=== PATIENT | male | born 1995 | race African-American/Black ===

== ENCOUNTER 2017-02-14 12:58 | Inpatient (IN) ==
[~2017-02-14 12:58] MED LIST: *HR* EPINEPHrine 1 MG/10 ML SYRINGE IVP ONE; Sodium Bicarbonate 50 MEQ/50 ML VIAL IVC ONE
[2017-02-14] MEDS ORDERED: 0.9 % Sodium Chloride 1,000 ML IVC ONE ×2 (13:03→13:25)
[2017-02-14] MEDS ORDERED: 0.9 % Sodium Chloride 1,000 ML ONE (13:04)
[2017-02-14 13:09] LABS: Hematocrit 46.2 % (37.5-50.1); Hemoglobin 15.3 g/dL (12.9-16.9); Mean Corpuscular HGB Conc 33.1 g/dL (31.6-35.5); Mean Corpuscular Hemoglobin 29.7 pg (28.0-33.3); Mean Corpuscular Volume 89.5 fL (83.0-100.0); Mean Platelet Volume 10.3 fL (9.4-12.4); Platelet Count 366 K/mcL (140-400); Red Blood Count 5.16 M/mcL (4.19-5.50); Red Cell Distribution Width 12.2 % (11.5-14.5)
[2017-02-14 13:22] LABS: Calcium 9.1 mg/dL (8.6-10.8); Potassium 4.8 mEq/L (3.5-4.5)
[2017-02-14 13:27] LABS: Bilirubin,Urine Negative (Negative); Blood,Urine Trace (Negative); Clarity,Urine Cloudy (Clear); Color,Urine Yellow (Yellow); Glucose,Urine (UA) Normal (Normal); Ketones,Urine Negative (Negative); Leukocyte Esterase,Urine Negative (Negative); Nitrite,Urine Negative (Negative); Protein,Urine 30 mg/dL (Neg-Trace); Specific Gravity,Urine 1.018 (1.010-1.025); Urobilinogen,Urine Normal (Normal)
[2017-02-14 13:28] LABS: Bacteria,Urine None Seen per hpf (None-Few); Hyaline Casts,Urine Few per lpf (None-Few); Squamous Epithelial Cell,Urine Many per lpf (None-Few); WBC,Urine 50-100 per hpf (0-3)
[2017-02-14 13:37] LABS: Sperm,Urine Present
[2017-02-14 13:44] LABS: Amphetamine Screen,Urine Negative ng/mL (Cutoff=1000); Barbiturate Screen,Urine Negative ng/mL (Cutoff=200); Benzodiazepines Screen,Urine Positive ng/mL (Cutoff=200); Cannabinoid Screen,Urine Negative ng/mL (Cutoff = 50); Cocaine Screen,Urine Positive ng/mL (Cutoff= 300); Opiate Screen,Urine Positive ng/mL (Cutoff=300); Phencyclidine Screen,Urine Negative ng/mL (Cutoff=25)
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
[2017-02-14] MEDS ORDERED: Piperacillin/Tazobactam 4.5 GM in D5% in Water (Mini-Bag+) 100 ML IVPB ONE (14:04)
[2017-02-14] MEDS ORDERED: *HR* Propofol 500 MG/50 ML BOTTLE IVP ONE (14:05)
[2017-02-14] MEDS ORDERED: *HR* HYDROmorphone (PF) 1 MG/ML SYRINGE IVP ONE (14:07)
[2017-02-14] MEDS ORDERED: Ondansetron 4 MG/2 ML VIAL IVP ONE (14:07)
[2017-02-14] MEDS: Propofol 500 MG/50 ML INFUS..BTL IVC SCH ×2 (14:39→19:41)
[2017-02-14 14:50] LABS: ABG Base Excess -7 mEq/L (-2 to 3); ABG HCO3 21 mEq/L (21-27); ABG Oxygen Saturation 94 % (95-98); ABG PCO2 52 mmHg (35-45); ABG PH 7.22 pH Units (7.32-7.45); ABG PO2 87 mmHg (85-104); ABG TCO2 23 mEq/L (20-26); Blood Gas Modality ASSIST CONTROL; Blood Gas PEEP 5 cm H2O; Blood Gas Respiration Rate 18; Blood Gas VT 500 cc
[2017-02-14] MEDS ORDERED: Furosemide 40 MG/4 ML VIAL ONE (15:30)
[2017-02-14] MEDS: Furosemide 40 MG/4 ML VIAL IVP ONE ×2 (15:37→17:37)
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
[2017-02-14] MEDS ORDERED: Naloxone 0.4 MG/ML INJ IVP PRN (16:29)
[2017-02-14] MEDS ORDERED: Sodium Phosphate 30 MMOL in D5% in Water 100 ML IVPB PRN (16:46)
[2017-02-14] MEDS ORDERED: Lacri-Lube 3.5 GM TUBE BOTH EYES PRN (16:47)
[2017-02-14] MEDS: FentaNYL (PF) 1,000 MCG in 0.9 % Sodium Chloride 80 ML IVC SCH (17:25)
[2017-02-14] MEDS: *HR* Heparin 5,000 UNIT/ML VIAL SQ SCH (17:36)
[2017-02-14] MEDS: Ringers Solution, Lactated 1,000 ML IVC SCH (17:37)
[2017-02-14 17:45] LABS: Acetaminophen < 1.0 mcg/mL (10-30); Salicylate < 5.0 mg/dL (15-30)
[2017-02-14 17:46] LABS: Albumin 3.8 g/dL (3.5-5.0); Bilirubin,Direct 0.4 mg/dL (0.0-0.5); Bilirubin,Indirect 0.2 mg/dL (0.0-1.2); Bilirubin,Total 0.6 mg/dL (0.2-1.2); Globulin 3.8 g/dL (2.4-3.5); Total Protein 7.6 g/dL (6.0-8.3)
[2017-02-14 18:10] LABS: ABG Base Excess -7 mEq/L (-2 to 3); ABG HCO3 22 mEq/L (21-27); ABG Oxygen Saturation 95 % (95-98); ABG PCO2 55 mmHg (35-45); ABG PH 7.22 pH Units (7.32-7.45); ABG PO2 95 mmHg (85-104); ABG TCO2 24 mEq/L (20-26)
[2017-02-14] MEDS: Lacri-Lube 3.5 GM TUBE BOTH EYES SCH (19:43)
[2017-02-14] MEDS: Chlorhexidine Rinse 15 ML MOUTHWASH MM SCH (20:13)
[2017-02-15] MEDS: Lacri-Lube 3.5 GM TUBE BOTH EYES SCH ×6 (00:49→19:46)
[2017-02-15] MEDS: Ringers Solution, Lactated 1,000 ML IVC SCH (04:01)
[2017-02-15 04:30] LABS: ABG Base Excess -5 mEq/L (-2 to 3); ABG HCO3 22 mEq/L (21-27); ABG Oxygen Saturation 89 % (95-98); ABG PCO2 44 mmHg (35-45); ABG PH 7.31 pH Units (7.32-7.45); ABG PO2 63 mmHg (85-104); ABG TCO2 23 mEq/L (20-26); Blood Gas Modality ASSIST CONTROL; Blood Gas PEEP 10 cm H2O; Blood Gas Respiration Rate 20; Blood Gas VT 550 cc
[2017-02-15] MEDS: *HR* Heparin 5,000 UNIT/ML VIAL SQ SCH ×2 (05:07→17:30)
[2017-02-15 05:35] LABS: Basophils % 0.2 %; Hematocrit 46.8 % (37.5-50.1); Immature Granulocytes % 0.9 % (0-4); Lymphocytes # 0.7 K/mcL (0.6-4.6); Lymphocytes % 2.8 %; Mean Corpuscular HGB Conc 35.5 g/dL (31.6-35.5); Mean Corpuscular Hemoglobin 29.6 pg (28.0-33.3); Mean Corpuscular Volume 83.6 fL (83.0-100.0); Mean Platelet Volume 9.8 fL (9.4-12.4); Monocytes # 0.7 K/mcL (0.0-1.3); Monocytes % 3.1 %; Neutrophils # 21.7 K/mcL (1.6-8.9); Platelet Count 267 K/mcL (140-400); Red Cell Distribution Width 12.3 % (11.5-14.5)
[2017-02-15 05:39] LABS: INR 1.2; Prothrombin Time 12.8 Seconds (9.4-12.1)
[2017-02-15] MEDS: Propofol 500 MG/50 ML INFUS..BTL IVC SCH ×3 (05:39→08:17)
[2017-02-15 05:46] LABS: Alanine Aminotransferase 829 Units/L (0-55); Albumin 3.6 g/dL (3.5-5.0); Alkaline Phosphatase 66 Units/L (38-126); Aspartate Amino Transferase 703 Units/L (5-34); BUN/Creatinine Ratio 9 (6-26); Bilirubin,Direct 0.5 mg/dL (0.0-0.5); Bilirubin,Indirect 0.3 mg/dL (0.0-1.2); Bilirubin,Total 0.8 mg/dL (0.2-1.2); Blood Urea Nitrogen 14 mg/dL (8-26); Carbon Dioxide 22 mEq/L (19-29); Chloride 101 mEq/L (98-109); Globulin 3.6 g/dL (2.4-3.5); Glucose 141 mg/dL (70-99); Magnesium 1.6 mg/dL (1.6-2.6); Osmolality,Calculated 289 (280-300); Phosphorous 3.9 mg/dL (2.3-4.7); Sodium 138 mEq/L (136-145); Total Protein 7.2 g/dL (6.0-8.3); eGFR For African Americans > 60 (> 60); eGFR For Non-African Americans 59 (> 60)
[2017-02-15 05:49] LABS: Ionized Calcium 1.06 mmol/L (1.15-1.35)
[2017-02-15 05:50] LABS: Potassium 6.1 mEq/L (3.5-4.5)
[2017-02-15] MEDS ORDERED: Furosemide 40 MG/4 ML VIAL IVP ONE (06:02)
[2017-02-15 06:05] LABS: Basophils # 0.1 K/mcL (0.0-0.2); Hemoglobin 16.6 g/dL (12.9-16.9)
[2017-02-15] MEDS: Calcium Gluconate 1,000 MG in D5% in Water 100 ML IVPB PRN (06:20)
[2017-02-15] MEDS: Magnesium Sulfate 2 GM in D5% in Water 100 ML IVPB PRN ×2 (06:27→14:30)
[2017-02-15] MEDS: Piperacillin/Tazobactam 3.375 GM in D5% in Water (Mini-Bag+) 100 ML IVPB SCH ×3 (06:48→21:50)
[2017-02-15 07:09] LABS: Platelet Estimate Normal (Normal)
[2017-02-15] MEDS: Pantoprazole 40 MG VIAL IVP SCH (08:16)
[2017-02-15] MEDS: Chlorhexidine Rinse 15 ML MOUTHWASH MM SCH ×2 (08:16→19:49)
--- NOTE | 2017-02-15 09:21 | Procedure Note ---
<VanceErnesto lind M - Last Filed: 02/15/17 10:19> Procedure: I examined this patient and my medical decision-making was reviewed with the Resident Physician. I agree with the documented findings, disposition and treatment plan as described except to the extent set forth below. Personally supervised residents placing a right femoral central line Disposition: ICU <Dinora Lui - Last Filed: 02/15/17 11:43> Date of procedure: 02/15/17 Pre-op diagnosis: cardiac arrest Post-op diagnosis: same Procedure: Central Venous Catheter Placement: Written consent obtained from patient's mother. The right femoral vein was visualized with ultrasound and the right femoral vein was deemed a reasonable target for catheter placement. The area was cleaned and draped in the usual, sterile fashion. With ultrasound guidance the introducer needle was advanced into the right femoral vein and dark, non-pulsatile bloodflow was returned. The guidewire was then advanced through the needle into the right femoral vein without resistance. The introducer needle was removed intact and the guidewire was visualized in the right femoral vein with ultrasound. A small incision was made with a scalpel at the skin surface and a dilator was threaded over the guidewire. Appropriate dilation of soft tissues obtained and the dilator was exchanged over the guidewire for a triple-lumen catheter. The guidewire was then removed intact and ability of all three lumens to appropriately aspirate and flush was verified. The catheter was secured in place with sutures and a biopatch was placed over the catheter at the insertion site. A sterile Tegaderm was placed over the insertion site. Patient tolerated the procedure well. I was supervised throughout this procedure by Walter Hernandez, DO PGY-2. Anesthesia: GETA Surgeon: Dinora Lui Bike Designer: Walter Hernandez Estimated blood loss (cc): 5 IV fluids (cc): 20 Pathology: none sent Condition: critical Disposition: ICU
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
[2017-02-15] MEDS ORDERED: 0.9 % Sodium Chloride 1,000 ML ONE ×2 (11:47→21:46)
[2017-02-15] MEDS: 0.9 % Sodium Chloride 1,000 ML IV SCH ×3 (11:49→21:49)
[2017-02-15] MEDS ORDERED: *HR* LORazepam 2 MG/ML VIAL IVP PRN (11:56)
[2017-02-15 13:31] LABS: Magnesium 1.6 mg/dL (1.6-2.6); Potassium 4.1 mEq/L (3.5-4.5)
--- NOTE | 2017-02-15 13:33 | Pulmonology Progress Note ---
<Walter Hernandez - Last Filed: 02/15/17 13:30> Date of Encounter: 02/15/17 Time of Encounter: 13:30 Assessment and Plan (1) Cardiopulmonary arrest with successful resuscitation Current Visit: Yes Status: Acute The patient was brought in by family and apparently had not been breathing for 10 minutes prior to arrival. Upon arrival patient was found to be without a pulse. Patient was successfully resuscitated in the emergency department. Hypothermic protocol was initiated however overdose is an exclusion criteria. (2) Anoxic encephalopathy syndrome Current Visit: Yes Status: Acute Patient's neurologic exam has varied over the past 24 hours since admission. At this point he appears to have pupillary and corneal reflexes. He is having some seizure activity which is likely related to his anoxic brain injury. Nuclear medicine brain perfusion scan showed cerebral blood flow which is not consistent with brain . EEG pending. Patient has been started on Keppra. Neurology has been consulted. (3) Polysubstance abuse Current Visit: Yes Status: Acute Likely resulting overdose leading to cardiac arrest. Urine tox screen was positive for opiates, benzodiazepines, and cocaine. (4) Renal failure, acute Current Visit: Yes Status: Acute Likely related to hypoperfusion setting of cardiac arrest. Creatinine improved today. Good urine output. Calero placed for accurate I's and O's. Continue fluid hydration. Continue monitor renal function. Qualifiers: Acute renal failure type: unspecified Qualified Code(s): N17.9 - Acute kidney failure, unspecified Subjective Principal diagnosis: Cardiac arrest Interval history: Patient seen and examined at bedside. Patient remains intubated. He has been off all sedation since last night and remains unresponsive. He does have spontaneous eye opening and a poor gaze but this is not in relation to any verbal commands. He has also had some involuntary right-sided twitching. He is unresponsive to verbal or painful stimuli Objective PUL Vital signs: Last Vital Signs Temp 99.5 F 02/15/17 11:39 Pulse 108 02/15/17 13:11 Resp 20 02/15/17 13:11 BP 134/86 02/15/17 13:11 Pulse Ox 100 02/15/17 13:11 General appearance: comatose ENT: oropharynx moist Effort: normal Auscultation: bilateral: clear Cardiovascular: regular rate and rhythm Gastrointestinal: hypoactive bowel sounds, soft, non-tender, non-distended Extremities: no cyanosis, no edema, no clubbing Ventilator Settings Ventilator Settings: Ventilator Settings, Last 8 Hours Ventilator Mode VC+ Ventilator Mode VC+ Ventilator Mode VC+ Ventilator Mode VC+ Ventilator Mode VC+ Ventilator Mode VC+ Ventilator Tidal Volume 550 Setting Ventilator Tidal Volume 550 Setting Ventilator Tidal Volume 550 Setting Ventilator Tidal Volume 550 Setting Ventilator Tidal Volume 550 Setting Ventilator Tidal Volume 550 Setting Ventilator Respiratory Rate 20 Setting Ventilator Respiratory Rate 20 Setting Ventilator Respiratory Rate 20 Setting Ventilator Respiratory Rate 20 Setting Ventilator Respiratory Rate 20 Setting Ventilator Respiratory Rate 20 Setting Actual Respiratory Rate 20 Actual Respiratory Rate 20 Actual Respiratory Rate 20 Actual Respiratory Rate 20 Positive End Expiratory 5 Pressure Positive End Expiratory 5 Pressure Positive End Expiratory 10 Pressure Positive End Expiratory 10 Pressure Peak Inspiratory Airway 25 Pressure Peak Inspiratory Airway 25 Pressure Peak Inspiratory Airway 24 Pressure Peak Inspiratory Airway 24 Pressure Results - Laboratory Findings CBC and BMP: 02/15/17 05:17 02/15/17 05:17 ABG ABG pH 7.31 pH Units (7.32-7.45) L 02/15/17 04:25 ABG pCO2 44 mmHg (35-45) 02/15/17 04:25 ABG pO2 63 mmHg (85-104) L 02/15/17 04:25 ABG O2 Saturation 89 % (95-98) L 02/15/17 04:25 PT/INR, D-dimer PT 12.8 Seconds (9.4-12.1) H 02/15/17 05:17 Abnormal lab findings: Abnormal lab results WBC 23.3 K/mcL (4.3-11.1) H 02/15/17 05:17 RBC 5.60 M/mcL (4.19-5.50) H 02/15/17 05:17 Neutrophils # 21.7 K/mcL (1.6-8.9) H 02/15/17 05:17 PT 12.8 Seconds (9.4-12.1) H 02/15/17 05:17 ABG pH 7.31 pH Units (7.32-7.45) L 02/15/17 04:25 ABG pO2 63 mmHg (85-104) L 02/15/17 04:25 ABG O2 Saturation 89 % (95-98) L 02/15/17 04:25 ABG Base Excess -5 mEq/L (-2 to 3) L 02/15/17 04:25 Potassium 6.1 mEq/L (3.5-4.5) H D 02/15/17 05:17 Creatinine 1.48 mg/dL (0.72-1.25) H 02/15/17 05:17 Est GFR (Non-Af Amer) 59 (> 60) L 02/15/17 05:17 Glucose 141 mg/dL (70-99) H 02/15/17 05:17 POC Glucose 145 (58-89) H 02/15/17 03:28 AST 703 Units/L (5-34) H 02/15/17 05:17 ALT 829 Units/L (0-55) H 02/15/17 05:17 Creatine Kinase 228 Units/L (30-200) H 02/14/17 17:17 Troponin I 0.21 ng/mL (0-0.03) H* 02/15/17 05:17 Globulin 3.6 g/dL (2.4-3.5) H 02/15/17 05:17 Albumin/Globulin Ratio 1.0 (1.1-2.2) L 02/15/17 05:17 Ur Specimen Adequacy See below A 02/14/17 13:22 Urine Clarity Cloudy (Clear) A 02/14/17 13:22 Urine Protein 30 mg/dL (Neg-Trace) H 02/14/17 13:22 Urine Blood Trace (Negative) H 02/14/17 13:22 Urine Microscopic RBC 5-15 per hpf (0-3) H 02/14/17 13:22 Urine Microscopic WBC 50-100 per hpf (0-3) H 02/14/17 13:22 Ur Squamous Epith Cells Many per lpf (None-Few) H 02/14/17 13:22 Salicylates < 5.0 mg/dL (15-30) L 02/14/17 17:17 Urine Opiates Screen Positive ng/mL (Bntyos=873) H 02/14/17 13:22 Acetaminophen < 1.0 mcg/mL (10-30) L 02/14/17 17:17 U Benzodiazepines Scrn Positive ng/mL (Fifrwn=713) H 02/14/17 13:22 Urine Cocaine Screen Positive ng/mL (Cutoff= 300) H 02/14/17 13:22 - Clinical Findings Intake & Output: Intake & Output 02/14/17 02/15/17 02/15/17 23:59 07:59 15:59 Intake Total 50 / 50 1048.6 / 1048.6 1000 / 1000 Output Total 1400 / 1400 850 / 850 650 / 650 Balance -1350 / -1350 198.6 / 198.6 350 / 350 Consult Discharge Plan - Plan Referrals: NONE,PCP [Primary Care Provider] - <Ernesto Pickard M - Last Filed: 02/15/17 15:58> Date of Encounter: 02/15/17 Objective PUL Vital signs: Last Vital Signs Temp 101.3 F H 02/15/17 14:00 Pulse 112 02/15/17 15:07 Resp 20 02/15/17 15:24 BP 136/87 02/15/17 15:24 Pulse Ox 99 02/15/17 15:24 Ventilator Settings Ventilator Settings: Ventilator Settings, Last 8 Hours Ventilator Mode VC+ Ventilator Mode VC+ Ventilator Mode VC+ Ventilator Mode VC+ Ventilator Mode VC+ Ventilator Mode VC+ Ventilator Tidal Volume 550 Setting Ventilator Tidal Volume 550 Setting Ventilator Tidal Volume 550 Setting Ventilator Tidal Volume 550 Setting Ventilator Tidal Volume 550 Setting Ventilator Tidal Volume 550 Setting Ventilator Respiratory Rate 20 Setting Ventilator Respiratory Rate 20 Setting Ventilator Respiratory Rate 20 Setting Ventilator Respiratory Rate 20 Setting Ventilator Respiratory Rate 20 Setting Ventilator Respiratory Rate 20 Setting Actual Respiratory Rate 20 Actual Respiratory Rate 20 Actual Respiratory Rate 20 Actual Respiratory Rate 20 Actual Respiratory Rate 20 Positive End Expiratory 5 Pressure Positive End Expiratory 5 Pressure Positive End Expiratory 5 Pressure Positive End Expiratory 5 Pressure Positive End Expiratory 10 Pressure Peak Inspiratory Airway 24 Pressure Peak Inspiratory Airway 22 Pressure Peak Inspiratory Airway 25 Pressure Peak Inspiratory Airway 25 Pressure Peak Inspiratory Airway 24 Pressure Results - Laboratory Findings CBC and BMP: 02/15/17 05:17 02/15/17 12:30 ABG ABG pH 7.31 pH Units (7.32-7.45) L 02/15/17 04:25 ABG pCO2 44 mmHg (35-45) 02/15/17 04:25 ABG pO2 63 mmHg (85-104) L 02/15/17 04:25 ABG O2 Saturation 89 % (95-98) L 02/15/17 04:25 PT/INR, D-dimer PT 12.8 Seconds (9.4-12.1) H 02/15/17 05:17 Abnormal lab findings: Abnormal lab results WBC 23.3 K/mcL (4.3-11.1) H 02/15/17 05:17 RBC 5.60 M/mcL (4.19-5.50) H 02/15/17 05:17 Neutrophils # 21.7 K/mcL (1.6-8.9) H 02/15/17 05:17 PT 12.8 Seconds (9.4-12.1) H 02/15/17 05:17 ABG pH 7.31 pH Units (7.32-7.45) L 02/15/17 04:25 ABG pO2 63 mmHg (85-104) L 02/15/17 04:25 ABG O2 Saturation 89 % (95-98) L 02/15/17 04:25 ABG Base Excess -5 mEq/L (-2 to 3) L 02/15/17 04:25 Creatinine 1.48 mg/dL (0.72-1.25) H 02/15/17 05:17 Est GFR (Non-Af Amer) 59 (> 60) L 02/15/17 05:17 Glucose 141 mg/dL (70-99) H 02/15/17 05:17 POC Glucose 145 (58-89) H 02/15/17 03:28 AST 703 Units/L (5-34) H 02/15/17 05:17 ALT 829 Units/L (0-55) H 02/15/17 05:17 Creatine Kinase 228 Units/L (30-200) H 02/14/17 17:17 Troponin I 0.21 ng/mL (0-0.03) H* 02/15/17 05:17 Globulin 3.6 g/dL (2.4-3.5) H 02/15/17 05:17 Albumin/Globulin Ratio 1.0 (1.1-2.2) L 02/15/17 05:17 Ur Specimen Adequacy See below A 02/14/17 13:22 Urine Clarity Cloudy (Clear) A 02/14/17 13:22 Urine Protein 30 mg/dL (Neg-Trace) H 02/14/17 13:22 Urine Blood Trace (Negative) H 02/14/17 13:22 Urine Microscopic RBC 5-15 per hpf (0-3) H 02/14/17 13:22 Urine Microscopic WBC 50-100 per hpf (0-3) H 02/14/17 13:22 Ur Squamous Epith Cells Many per lpf (None-Few) H 02/14/17 13:22 Salicylates < 5.0 mg/dL (15-30) L 02/14/17 17:17 Urine Opiates Screen Positive ng/mL (Zuawqs=752) H 02/14/17 13:22 Acetaminophen < 1.0 mcg/mL (10-30) L 02/14/17 17:17 U Benzodiazepines Scrn Positive ng/mL (Hjardt=151) H 02/14/17 13:22 Urine Cocaine Screen Positive ng/mL (Cutoff= 300) H 02/14/17 13:22 - Clinical Findings Intake & Output: Intake & Output 02/14/17 02/15/17 02/15/17 23:59 07:59 15:59 Intake Total 50 / 50 1048.6 / 1048.6 1204 / 1204 Output Total 1400 / 1400 850 / 850 650 / 650 Balance -1350 / -1350 198.6 / 198.6 554 / 554 - Attending Attestation I examined this patient and my medical decision-making was reviewed with the Resident Physician. I agree with the documented findings, disposition and treatment plan as described except to the extent set forth below. Patient seen and examined. Labs, radiology, chart personally reviewed. Agree with resident's history and physical, assessment, plan with following comments: [employer]: Patient does not follows commands, discussed with the neurologist and patient have brainstem function with reactive pupil and his examination fluctuate. However when I tried spontaneous breathing trial there is no evidence of any active breathing with apnea. I still feel poor prognosis in this situation and anoxic/hypoxic. There is question about seizure as well and neurologist to address that. Perfusion scan for brain activity. Discussed with the mother at the bedside. Pulmonary: Acceptable oxygenation and ventilation. There is no plan for extubation at this point and lowered his FiO2 as well as his PEEP with maintaining oxygenation recently. Cardiovascular: stable GI: Nutrition per dietary and GI prophylaxis per routine Heme: DVT prophylaxis per routine ID: Continue antibiotics and plan to de-escalation Renal; urine out put and renal funtion reviewed Endorcine: blood glucose is monitored Lines: all lines checked and no evidence of infections Skin: skin care to prevent pressure ulcers per nursing routine care I spent 35 min of Critical Care time with this patient. It involved decision making of high complexity to assess, manipulate, and support vital organ system failure and/or to prevent further life threatening deterioration of the patient' s condition. The time involved in the performance of separately reportable procedures was not counted toward critical care time.
[2017-02-15] MEDS ORDERED: Acetaminophen 650 MG RECTAL SUPP RC PRN (14:05)
[2017-02-15] MEDS: FentaNYL (PF) 1,000 MCG in 0.9 % Sodium Chloride 80 ML IVC SCH (15:09)
--- NOTE | 2017-02-15 16:32 | EEG/EMG/Oth Biometrics Report ---
EEG Procedure Report Date of procedure: 02/15/17 EEG Procedure: Routine EEG Procedure Note: Pt unresponsive, on Vent, admitted with hypoxic brain injury technical Description: this is a Routine 21-channel digital EEG was obtained to rule out any seizure activity or focal abnormalities. FINDINGS: this EEG showed significant Background slowing along with periodic generalized predominantly frontal central polyspike activity at 0.5 - 1 Hz. noted to be complex and multiphasic and are epileptiform in morphology instead of being lateralized, they are generalized. lasting only one or some times more than 3 seconds, off and on during the study, this Periodic patterns, including burst-suppression patterns, which is more common in anoxic injuries than in other systemic disturbances. there are continous Burst-suppression pattern noted in between those discharges, periodically interrupted by episodes of suppression (activity < 10 V). s) than the bursts of activity IMPRESSION: This is significantly Abnormal EEG, significant paroxysmal activities or epileptiform discharges were seen thorough the study along with Burst suppression pattern which is commonly associated with Hypoxic Anoxic injury and associated with poor prognosis clinical correlation is suggested.
--- NOTE | 2017-02-15 16:32 | Electrocardiograph Report ---
[address] [address] Test Date: 2017-02-14 Pat Name: Geoffrey Orantes Department: [id number] Room: [facility] Gender: M Bankruptcy Judge: : [id number] Requested By: Walter Alonso Order Number: [id number] Reading MD: Brittani Maxwell Measurements Intervals [place] Rate: 144 P: MT: 0 QRS: 83 QRSD: 134 T: 4 QT: 323 QTc: 406 Interpretive Statements ATRIAL FIBRILLATION WITH RAPID VENTRICULAR RESPONSE INTRAVENTRICULAR CONDUCTION DELAY Electronically Signed On 02-15-2017 16:30:53 EDT by Brittani Maxwell
[2017-02-15] MEDS ORDERED: Piperacillin/Tazobactam 3.375 GM in D5% in Water (Mini-Bag+) 100 ML IVPB SCH (22:00)
[2017-02-16] MEDS: Lacri-Lube 3.5 GM TUBE BOTH EYES SCH ×5 (02:09→16:56)
[2017-02-16 04:44] LABS: Basophils % 0.1 %; Eosinophils % 0.1 %; Hematocrit 38.6 % (37.5-50.1); Hemoglobin 14.1 g/dL (12.9-16.9); Immature Granulocytes % 1.5 % (0-4); Lymphocytes % 5.6 %; Mean Corpuscular HGB Conc 36.5 g/dL (31.6-35.5); Mean Corpuscular Hemoglobin 29.6 pg (28.0-33.3); Mean Corpuscular Volume 80.9 fL (83.0-100.0); Mean Platelet Volume 9.7 fL (9.4-12.4); Monocytes # 0.5 K/mcL (0.0-1.3); Monocytes % 2.5 %; Neutrophils # 16.7 K/mcL (1.6-8.9); Platelet Count 194 K/mcL (140-400); Red Blood Count 4.77 M/mcL (4.19-5.50); Red Cell Distribution Width 12.2 % (11.5-14.5); Segmented Neutrophils % 90.2 %
[2017-02-16 04:50] LABS: INR 1.3; Prothrombin Time 14.4 Seconds (9.4-12.1)
[2017-02-16 04:52] LABS: Ionized Calcium 1.06 mmol/L (1.15-1.35)
[2017-02-16 04:58] LABS: Alanine Aminotransferase 425 Units/L (0-55); Albumin 2.9 g/dL (3.5-5.0); Alkaline Phosphatase 60 Units/L (38-126); Aspartate Amino Transferase 138 Units/L (5-34); BUN/Creatinine Ratio 16 (6-26); Bilirubin,Direct 0.6 mg/dL (0.0-0.5); Bilirubin,Indirect 0.6 mg/dL (0.0-1.2); Bilirubin,Total 1.2 mg/dL (0.2-1.2); Blood Urea Nitrogen 14 mg/dL (8-26); Calcium 8.8 mg/dL (8.6-10.8); Carbon Dioxide 26 mEq/L (19-29); Chloride 100 mEq/L (98-109); Glucose 128 mg/dL (70-99); Magnesium 1.9 mg/dL (1.6-2.6); Osmolality,Calculated 282 (280-300); Phosphorous 1.9 mg/dL (2.3-4.7); Sodium 135 mEq/L (136-145); Total Protein 6.2 g/dL (6.0-8.3); eGFR For African Americans > 60 (> 60); eGFR For Non-African Americans > 60 (> 60)
[2017-02-16 04:59] LABS: Albumin/Globulin Ratio 0.9 (1.1-2.2); Globulin 3.3 g/dL (2.4-3.5)
[2017-02-16] MEDS: *HR* Heparin 5,000 UNIT/ML VIAL SQ SCH ×2 (06:16→18:25)
[2017-02-16] MEDS: Magnesium Sulfate 2 GM in D5% in Water 100 ML IVPB PRN (06:17)
[2017-02-16] MEDS: Piperacillin/Tazobactam 3.375 GM in D5% in Water (Mini-Bag+) 100 ML IVPB SCH ×3 (06:22→21:50)
[2017-02-16] MEDS: Calcium Gluconate 1,000 MG in D5% in Water 100 ML IVPB PRN (06:23)
[2017-02-16] MEDS: Potassium Chloride 40 MEQ/200 ML BAG IVPB PRN ×2 (06:24→17:39)
[2017-02-16] MEDS ORDERED: Norepinephrine 4 MG in D5% in Water 250 ML IVC SCH (06:30)
[2017-02-16] MEDS: Pantoprazole 40 MG VIAL IVP SCH (08:09)
[2017-02-16] MEDS: Chlorhexidine Rinse 15 ML MOUTHWASH MM SCH (08:10)
[2017-02-16] MEDS: 0.9 % Sodium Chloride 1,000 ML IV SCH ×2 (08:45→17:40)
--- NOTE | 2017-02-16 10:08 | Pulmonology Progress Note ---
Date of Encounter: 02/16/17 Time of Encounter: 07:45 Assessment and Plan (1) Brain Current Visit: Yes Status: Acute I have reviewed nuclear brain images with radiologist Dr. Davis and talked to Dr. Cook and then neurologist Dr. Mcgee and result of the test: Absent cerebral blood flow supporting a clinical diagnosis of brain . I have met with mother and family members and told them about the result of the study and clinically diagnosis supportive of breath . Patient is declared brain after that 12:00 pm. Case discussed with organ donation team. (2) Anoxic encephalopathy syndrome Current Visit: Yes Status: Acute There is significant deterioration in his neurological examination with GCS of 3 now. I have talked to radiology Department to repeat nuclear cerebral perfusion study to compare it with yesterday and also discussed with her neurologist. I suspect at this point patient brainstem is not functioning. There is instability on his blood pressure and cardiovascular system I will attempt to keep his mean arterial blood pressure above 65 for organ perfusion and will give him fluid bolus and started Levophed if blood pressure does not improve. I will meet with the family today. Prognosis is very poor. Critical care time 40 minutes excluding procedures. (3) Acute respiratory failure requiring reintubation Current Visit: Yes Status: Acute I did a short spontaneous breathing trial and patient is apneic and stopped it because of the hemodynamic instability. Organ donation staff to be notified. (4) Cardiopulmonary arrest with successful resuscitation Current Visit: Yes Status: Acute (5) Polysubstance abuse Current Visit: Yes Status: Chronic Subjective Principal diagnosis: Cardiac arrest Interval history: Patient's neurological evaluation has deteriorated and he said [place] Coma Scale 3. Objective PUL Vital signs: Last Vital Signs Temp 98.3 F 02/16/17 08:15 Pulse 96 02/16/17 08:00 Resp 20 02/16/17 08:05 BP 87/55 02/16/17 08:00 Pulse Ox 98 02/16/17 08:05 General appearance: no acute distress Eyes: nonicteric, other (There are no reflexes including pupil and corneal) Neck: no lymphadenopathy Effort: normal Auscultation: bilateral: clear Percussion: bilateral: not dull Cardiovascular: regular rate and rhythm Gastrointestinal: normoactive bowel sounds, non-distended Extremities: no cyanosis, no edema unable to assess due to mental status, other (GCS 3) Ventilator Settings Ventilator Settings: Ventilator Settings, Last 8 Hours Ventilator Mode A/C Ventilator Mode A/C Ventilator Mode VC+ Ventilator Mode VC+ Ventilator Mode VC+ Ventilator Mode A/C Ventilator Mode VC+ Ventilator Mode VC+ Ventilator Mode VC+ Ventilator Tidal Volume 550 Setting Ventilator Tidal Volume 550 Setting Ventilator Tidal Volume 550 Setting Ventilator Tidal Volume 550 Setting Ventilator Tidal Volume 550 Setting Ventilator Tidal Volume 550 Setting Ventilator Tidal Volume 550 Setting Ventilator Tidal Volume 550 Setting Ventilator Tidal Volume 550 Setting Ventilator Respiratory Rate 20 Setting Ventilator Respiratory Rate 20 Setting Ventilator Respiratory Rate 20 Setting Ventilator Respiratory Rate 20 Setting Ventilator Respiratory Rate 20 Setting Ventilator Respiratory Rate 20 Setting Ventilator Respiratory Rate 20 Setting Ventilator Respiratory Rate 20 Setting Ventilator Respiratory Rate 20 Setting Actual Respiratory Rate 20 Actual Respiratory Rate 20 Actual Respiratory Rate 20 Actual Respiratory Rate 20 Positive End Expiratory 5 Pressure Positive End Expiratory 5 Pressure Positive End Expiratory 5 Pressure Positive End Expiratory 5 Pressure Positive End Expiratory 5 Pressure Positive End Expiratory 5 Pressure Positive End Expiratory 5 Pressure Positive End Expiratory 5 Pressure Positive End Expiratory 5 Pressure Peak Inspiratory Airway 22 Pressure Peak Inspiratory Airway 22 Pressure Peak Inspiratory Airway 21 Pressure Peak Inspiratory Airway 22 Pressure Results - Laboratory Findings CBC and BMP: 02/16/17 04:05 02/16/17 04:05 ABG ABG pH 7.31 pH Units (7.32-7.45) L 02/15/17 04:25 ABG pCO2 44 mmHg (35-45) 02/15/17 04:25 ABG pO2 63 mmHg (85-104) L 02/15/17 04:25 ABG O2 Saturation 89 % (95-98) L 02/15/17 04:25 PT/INR, D-dimer PT 14.4 Seconds (9.4-12.1) H 02/16/17 04:05 Abnormal lab findings: Abnormal lab results WBC 18.5 K/mcL (4.3-11.1) H 02/16/17 04:05 MCV 80.9 fL (83.0-100.0) L 02/16/17 04:05 MCHC 36.5 g/dL (31.6-35.5) H 02/16/17 04:05 Neutrophils # 16.7 K/mcL (1.6-8.9) H 02/16/17 04:05 PT 14.4 Seconds (9.4-12.1) H 02/16/17 04:05 ABG pH 7.31 pH Units (7.32-7.45) L 02/15/17 04:25 ABG pO2 63 mmHg (85-104) L 02/15/17 04:25 ABG O2 Saturation 89 % (95-98) L 02/15/17 04:25 ABG Base Excess -5 mEq/L (-2 to 3) L 02/15/17 04:25 Sodium 135 mEq/L (136-145) L 02/16/17 04:05 Potassium 3.0 mEq/L (3.5-4.5) L D 02/16/17 04:05 Glucose 128 mg/dL (70-99) H 02/16/17 04:05 POC Glucose 145 (58-89) H 02/15/17 03:28 Ionized Calcium 1.06 mmol/L (1.15-1.35) L 02/16/17 04:05 Phosphorus 1.9 mg/dL (2.3-4.7) L D 02/16/17 04:05 Direct Bilirubin 0.6 mg/dL (0.0-0.5) H 02/16/17 04:05 AST 138 Units/L (5-34) H 02/16/17 04:05 ALT 425 Units/L (0-55) H 02/16/17 04:05 Creatine Kinase 228 Units/L (30-200) H 02/14/17 17:17 Troponin I 0.21 ng/mL (0-0.03) H* 02/15/17 05:17 Albumin 2.9 g/dL (3.5-5.0) L 02/16/17 04:05 Albumin/Globulin Ratio 0.9 (1.1-2.2) L 02/16/17 04:05 Ur Specimen Adequacy See below A 02/14/17 13:22 Urine Clarity Cloudy (Clear) A 02/14/17 13:22 Urine Protein 30 mg/dL (Neg-Trace) H 02/14/17 13:22 Urine Blood Trace (Negative) H 02/14/17 13:22 Urine Microscopic RBC 5-15 per hpf (0-3) H 02/14/17 13:22 Urine Microscopic WBC 50-100 per hpf (0-3) H 02/14/17 13:22 Ur Squamous Epith Cells Many per lpf (None-Few) H 02/14/17 13:22 Salicylates < 5.0 mg/dL (15-30) L 02/14/17 17:17 Urine Opiates Screen Positive ng/mL (Iuzazh=052) H 02/14/17 13:22 Acetaminophen < 1.0 mcg/mL (10-30) L 02/14/17 17:17 U Benzodiazepines Scrn Positive ng/mL (Dpgrjf=825) H 02/14/17 13:22 Urine Cocaine Screen Positive ng/mL (Cutoff= 300) H 02/14/17 13:22 - Microbiology Findings Microbiology Findings: Microbiology, Last 48 Hours 02/14/17 17:17 Blood Culture - Preliminary Peripheral Venipuncture No growth. 02/14/17 19:57 Blood Culture - Preliminary Peripheral Venipuncture No growth. - Clinical Findings Intake & Output: Intake & Output 02/15/17 02/16/17 02/16/17 23:59 07:59 15:59 Intake Total 1388 / 1388 205 / 205 414 / 414 Output Total 750 / 750 525 / 525 375 / 375 Balance 638 / 638 -320 / -320 39 / 39 Consult Discharge Plan - Plan Referrals: NONE,PCP [Primary Care Provider] -
--- NOTE | 2017-02-16 12:45 | Neurology Progress Note ---
Date of Encounter: 02/16/17 Time of Encounter: 10:43 Assessment and Plan (1) Brain Current Visit: Yes Status: Acute On today's neurological examination there is no clinical evidence of any brainstem reflexes. At the moment patient pupils are fixed and dilated he does not have any corneals not breathing over the vent , EEG yesterday was consistent with burst suppression pattern, least pain in patient with severe anoxic brain injury. Nuclear flow studies also did not show any evidence of blood flow. I have discussed the case with Dr. Perez,( ICU attending) who has independently examined the patient, and his exam findings are similar to mine as he did not have any brainstem reflexes. At this time clinical as well as confirmatory test seems to confirm brain criteria (2) Anoxic encephalopathy syndrome Current Visit: Yes Status: Acute (3) Polysubstance abuse Current Visit: Yes Status: Chronic Subjective Principal diagnosis: Cardiac arrest Interval history: Patient seen as an follow-up from yesterday after being admitted with anoxic brain injury. Today's he did not have any brainstem reflexes as were noted on yesterday's examination he is not breathing over the vent he just had repeat nuclear scan for confirmatory blood flow studies awaiting the official report. He also had an EEG yesterday that showed burst suppression pattern consistent with severe anoxic brain injury Objective - Constitutional Vitals: Temp Pulse Resp BP Pulse Ox 98.3 F 89 20 87/56 97 02/16/17 08:15 02/16/17 12:00 02/16/17 12:00 02/16/17 12:00 02/16/17 12:00 - Neurological Exam Sensorimotor examination: Present: other (On today's neurological examination. Patient is intubated he is off sedation for 24 hours. Pupils are fixed and dilated. Corneals are negative. No gag reflex. Negative oculocephalic reflex. No withdrawal to deep pain. No breathing over the vent.) Mental Status Examination: Present: no spontaneous eye opening to voice or tactile stimulation Results - Laboratory Findings CBC and BMP: 02/16/17 04:05 02/16/17 04:05 Abnormal lab findings: Abnormal lab results WBC 18.5 K/mcL (4.3-11.1) H 02/16/17 04:05 MCV 80.9 fL (83.0-100.0) L 02/16/17 04:05 MCHC 36.5 g/dL (31.6-35.5) H 02/16/17 04:05 Neutrophils # 16.7 K/mcL (1.6-8.9) H 02/16/17 04:05 PT 14.4 Seconds (9.4-12.1) H 02/16/17 04:05 ABG pH 7.31 pH Units (7.32-7.45) L 02/15/17 04:25 ABG pO2 63 mmHg (85-104) L 02/15/17 04:25 ABG O2 Saturation 89 % (95-98) L 02/15/17 04:25 ABG Base Excess -5 mEq/L (-2 to 3) L 02/15/17 04:25 Sodium 135 mEq/L (136-145) L 02/16/17 04:05 Potassium 3.0 mEq/L (3.5-4.5) L D 02/16/17 04:05 Glucose 128 mg/dL (70-99) H 02/16/17 04:05 POC Glucose 145 (58-89) H 02/15/17 03:28 Ionized Calcium 1.06 mmol/L (1.15-1.35) L 02/16/17 04:05 Phosphorus 1.9 mg/dL (2.3-4.7) L D 02/16/17 04:05 Direct Bilirubin 0.6 mg/dL (0.0-0.5) H 02/16/17 04:05 AST 138 Units/L (5-34) H 02/16/17 04:05 ALT 425 Units/L (0-55) H 02/16/17 04:05 Creatine Kinase 228 Units/L (30-200) H 02/14/17 17:17 Troponin I 0.21 ng/mL (0-0.03) H* 02/15/17 05:17 Albumin 2.9 g/dL (3.5-5.0) L 02/16/17 04:05 Albumin/Globulin Ratio 0.9 (1.1-2.2) L 02/16/17 04:05 Ur Specimen Adequacy See below A 02/14/17 13:22 Urine Clarity Cloudy (Clear) A 02/14/17 13:22 Urine Protein 30 mg/dL (Neg-Trace) H 02/14/17 13:22 Urine Blood Trace (Negative) H 02/14/17 13:22 Urine Microscopic RBC 5-15 per hpf (0-3) H 02/14/17 13:22 Urine Microscopic WBC 50-100 per hpf (0-3) H 02/14/17 13:22 Ur Squamous Epith Cells Many per lpf (None-Few) H 02/14/17 13:22 Salicylates < 5.0 mg/dL (15-30) L 02/14/17 17:17 Urine Opiates Screen Positive ng/mL (Ruekjo=339) H 02/14/17 13:22 Acetaminophen < 1.0 mcg/mL (10-30) L 02/14/17 17:17 U Benzodiazepines Scrn Positive ng/mL (Asllai=738) H 02/14/17 13:22 Urine Cocaine Screen Positive ng/mL (Cutoff= 300) H 02/14/17 13:22 - Diagnostic Findings Additional findings: Repeat nuclear scan today did not show any evidence of blood flow confirms the diagnosis of brain Consult Discharge Plan - Plan Referrals: NONE,PCP [Primary Care Provider] -
[2017-02-16] MEDS: FentaNYL (PF) 1,000 MCG in 0.9 % Sodium Chloride 80 ML IVC SCH (16:57)
[2017-02-16] MEDS ORDERED: Potassium Phosphate 44 MEQ in 0.9 % Sodium Chloride 250 ML IVPB ONE (17:25)
[2017-02-16] MEDS ORDERED: Vasopressin 40 UNIT in D5% in Water 100 ML IV SCH (18:45)
[2017-02-16] MEDS ORDERED: 0.45 % Sodium Chloride w/KCl 20 MEQ/1,000 ML MLS IVC SCH ×2 (18:45→20:45)
[2017-02-16] MEDS ORDERED: *HR* Dextrose 50 % in Water (Syg) 50 ML SYRINGE IVP ONE (18:57)
[2017-02-16] MEDS ORDERED: methylPREDNISolone 125 MG/2 ML VIAL IVP ONE (19:01)
[2017-02-16] MEDS ORDERED: Insulin Human Regular 20 UNIT in 0.9 % Sodium Chloride 10 ML IV ONE (19:03)
[2017-02-16] MEDS ORDERED: Levothyroxine Sodium 100 MCG VIAL IVP ONE (19:04)
[2017-02-16] MEDS ORDERED: *HR* Labetalol 20 MG/4 ML SYRINGE IVP STA (19:22)
[2017-02-16] MEDS ORDERED: LEVOTHYROXINE SODIUM IV SCH (19:45)
[2017-02-16] MEDS ORDERED: SODIUM CHLORIDE 0.9% IV SCH (19:45)
[2017-02-16] MEDS ORDERED: 0.9 % Sodium Chloride 500 ML ONE (20:09)
[2017-02-16] MEDS ORDERED: 0.9 % Sodium Chloride 1,000 ML ONE (20:13)
[2017-02-16] MEDS ORDERED: EPINEPHrine 1 MG in D5% in Water 250 ML IVC SCH (23:30)
[2017-02-17] MEDS ORDERED: Piperacillin/Tazobactam 3.375 GM in D5% in Water (Mini-Bag+) 100 ML IVPB SCH
[2017-02-17] MEDS ORDERED: Potassium Phosphate 44 MEQ in 0.9 % Sodium Chloride 250 ML IVPB ONE ×3 (02:27→11:15)
[2017-02-17] MEDS ORDERED: Albumin 25% 12.5gm/50mL 12.5 GM/50 ML IV.SOLN IVPB ONE (02:54)
[2017-02-17] MEDS ORDERED: Ringers Solution, Lactated 500 ML IVC ONE ×2 (02:55→05:22)
[2017-02-17] MEDS: Piperacillin/Tazobactam 3.375 GM in D5% in Water (Mini-Bag+) 100 ML IVPB SCH ×3 (03:17→15:28)
[2017-02-17] MEDS ORDERED: *HR* Labetalol 20 MG/4 ML SYRINGE IVP ONE (03:44)
[2017-02-17] MEDS ORDERED: *HR* Labetalol 20 MG/4 ML SYRINGE IVP STA (04:01)
[2017-02-17] MEDS ORDERED: niCARdipine 40 MG/200 ML MLS IVC ONE (04:55)
[2017-02-17] MEDS: niCARdipine 40 MG/200 ML MLS IVC SCH ×2 (05:00→09:14)
[2017-02-17] MEDS ORDERED: Esmolol 2.5 GM/250 ML MLS IVC SCH (06:15)
[2017-02-17] MEDS ORDERED: Ringers Solution, Lactated 1,000 ML IVC SCH (06:45)
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
--- NOTE | 2017-02-17 09:02 | Procedure Note ---
<Thomas Iyer - Last Filed: 02/17/17 09:00> Date of procedure: 02/17/17 Pre-op diagnosis: Cardiopulmonary arrest Post-op diagnosis: same Procedure: A time-out was completed verifying correct patient, procedure, site, positioning , and special equipment if applicable. The patient was placed in a dependent position appropriate for central line placement based on the vein to be cannulated. The patients right/left neck was prepped and draped in sterile fashion. A triple lumen Cordis catheter was introduced into the the internal jugular vein using the Seldinger technique and under ultrasound guidance. The catheter was threaded smoothly over the guide wire and appropriate blood return was obtained. Each lumen of the catheter was evacuated of air and flushed with sterile saline. The catheter was then sutured in place to the skin and a sterile dressing applied. Perfusion to the extremity distal to the point of catheter insertion was checked and found to be adequate. Attending Dr. Pickard was present for the entire procedure. Estimated Blood Loss: 0cc The patient tolerated the procedure well and there were no complications. Anesthesia: JUHI Surgeon: Thomas Iyer Service Worker Helper: Ernesto Pickard Estimated blood loss (cc): 0 Pathology: none sent Condition: critical Disposition: ICU <Ernesto Pickard - Last Filed: 02/17/17 10:00> Procedure: I examined this patient and my medical decision-making was reviewed with the Resident Physician. I agree with the documented findings, disposition and treatment plan as described except to the extent set forth below. I have personally supervised resident placing a right IJ central line. No immediate complications.
--- NOTE | 2017-02-17 10:03 | Procedure Note ---
Date of procedure: 02/17/17 Pre-op diagnosis: Patient with brain and need a line for hemodynamic monitoring Post-op diagnosis: same Procedure: Patient is already under care of [facility] and they needed A-line for hemodynamic monitoring and left femoral a line was visualized with the bedside ultrasound and an a line was placed. Left femoral artery was punctured with a needle and then guidewire was passed then needle was removed and a catheter was passed over the wire and then guidewire was removed and catheter was securely sutured. This a line was connected with monitor with arterial waveform and no immediate complications. Anesthesia: none Surgeon: Ernesto Pickard Disposition: ICU
[2017-02-17 15:17] VITALS: BP 113/69
--- NOTE | 2017-02-18 17:08 | Electrocardiograph Report ---
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
[2017-02-19 12:39] LABS: ABG Base Excess 2 mEq/L (-2 to 3); ABG HCO3 24 mEq/L (21-27); ABG Oxygen Saturation 99 % (95-98); ABG PCO2 28 mmHg (35-45); ABG PH 7.53 pH Units (7.32-7.45); ABG PO2 100 mmHg (85-104); ABG TCO2 25 mEq/L (20-26); Blood Gas Modality ASSIST CONTROL; Blood Gas PEEP 5 cm H2O; Blood Gas Respiration Rate 20; Blood Gas VT 550 cc
[2017-02-19 12:39] LABS: ABG Base Excess 0 mEq/L (-2 to 3); ABG HCO3 24 mEq/L (21-27); ABG Oxygen Saturation 100 % (95-98); ABG PCO2 34 mmHg (35-45); ABG PH 7.45 pH Units (7.32-7.45); ABG PO2 328 mmHg (85-104); ABG TCO2 25 mEq/L (20-26)
[2017-02-19 12:39] LABS: ABG Base Excess 2 mEq/L (-2 to 3); ABG HCO3 25 mEq/L (21-27); ABG Oxygen Saturation 100 % (95-98); ABG PCO2 35 mmHg (35-45); ABG PH 7.47 pH Units (7.32-7.45); ABG PO2 438 mmHg (85-104); ABG TCO2 27 mEq/L (20-26); Blood Gas Modality ASSIST CONTROL; Blood Gas PEEP 5 cm H2O; Blood Gas Respiration Rate 20; Blood Gas VT 550 cc
[2017-02-19 12:39] LABS: ABG Base Excess 2 mEq/L (-2 to 3); ABG HCO3 24 mEq/L (21-27); ABG Oxygen Saturation 96 % (95-98); ABG PCO2 30 mmHg (35-45); ABG PH 7.52 pH Units (7.32-7.45); ABG PO2 74 mmHg (85-104); ABG TCO2 25 mEq/L (20-26)
[2017-02-19 12:39] LABS: ABG Base Excess 4 mEq/L (-2 to 3); ABG HCO3 26 mEq/L (21-27); ABG Oxygen Saturation 100 % (95-98); ABG PCO2 34 mmHg (35-45); ABG PO2 519 mmHg (85-104); ABG TCO2 28 mEq/L (20-26); Blood Gas Modality ASSIST CONTROL; Blood Gas PEEP 5 cm H2O; Blood Gas Respiration Rate 20; Blood Gas VT 550 cc
[2017-02-19 12:39] LABS: ABG Base Excess 1 mEq/L (-2 to 3); ABG HCO3 24 mEq/L (21-27); ABG Oxygen Saturation 99 % (95-98); ABG PCO2 31 mmHg (35-45); ABG PH 7.49 pH Units (7.32-7.45); ABG PO2 137 mmHg (85-104); ABG TCO2 25 mEq/L (20-26); Blood Gas Modality VC; Blood Gas PEEP 5 cm H2O; Blood Gas Respiration Rate 20; Blood Gas VT 550 cc
[2017-02-19 12:39] LABS: ABG Base Excess 2 mEq/L (-2 to 3); ABG HCO3 26 mEq/L (21-27); ABG Oxygen Saturation 100 % (95-98); ABG PCO2 36 mmHg (35-45); ABG PH 7.47 pH Units (7.32-7.45); ABG PO2 181 mmHg (85-104); ABG TCO2 27 mEq/L (20-26); Blood Gas Modality ASSIST CONTROL; Blood Gas PEEP 5 cm H2O; Blood Gas Respiration Rate 20; Blood Gas VT 550 cc
[2017-02-19 12:39] LABS: ABG Base Excess 0 mEq/L (-2 to 3); ABG HCO3 24 mEq/L (21-27); ABG Oxygen Saturation 100 % (95-98); ABG PCO2 37 mmHg (35-45); ABG PH 7.43 pH Units (7.32-7.45); ABG PO2 402 mmHg (85-104); ABG TCO2 25 mEq/L (20-26)
== END 2017-02-16 12:00 | disposition expired | DRG 917 ==
LOC: EMEROO 12:58 → ICNU 14:43 → MERGE 14:43 → ICNU 15:40
PROVIDERS: ADMIT Internal Medicine Pulmonary Disease; ATTEND Internal Medicine Pulmonary Disease

== ENCOUNTER 2017-02-17 12:22 | Inpatient (IN) ==
[2017-02-16 11:31] LABS: Hepatitis B Surface Antigen Nonreactive (Nonreactive)
[2017-02-16 16:46] LABS: Hematocrit 36.3 % (37.5-50.1); Hemoglobin 13.2 g/dL (12.9-16.9); Immature Platelets 4.2 % (1.1-6.1); Mean Corpuscular HGB Conc 36.4 g/dL (31.6-35.5); Mean Corpuscular Hemoglobin 29.7 pg (28.0-33.3); Mean Corpuscular Volume 81.6 fL (83.0-100.0); Mean Platelet Volume 10.1 fL (9.4-12.4); Red Blood Count 4.45 M/mcL (4.19-5.50); Red Cell Distribution Width 12.4 % (11.5-14.5)
[2017-02-16 16:52] LABS: INR 1.2; Prothrombin Time 13.1 Seconds (9.4-12.1)
[2017-02-16 17:03] LABS: Alanine Aminotransferase 313 Units/L (0-55); Albumin 2.7 g/dL (3.5-5.0); Albumin/Globulin Ratio 0.8 (1.1-2.2); Alkaline Phosphatase 52 Units/L (38-126); Amylase 173 Units/L (25-125); Aspartate Amino Transferase 77 Units/L (5-34); BUN/Creatinine Ratio 11 (6-26); Bilirubin,Direct 0.5 mg/dL (0.0-0.5); Bilirubin,Indirect 0.4 mg/dL (0.0-1.2); Bilirubin,Total 0.9 mg/dL (0.2-1.2); Blood Urea Nitrogen 13 mg/dL (8-26); Calcium 9.2 mg/dL (8.6-10.8); Carbon Dioxide 26 mEq/L (19-29); Chloride 112 mEq/L (98-109); Cholesterol 85 mg/dL (< 200); Creatine Kinase 395 Units/L (30-200); Gamma Glutamyl Transpeptidase 30 Units/L (12-64); Globulin 3.5 g/dL (2.4-3.5); Glucose 121 mg/dL (70-99); Lactate Dehydrogenase 257 Units/L (159-327); Lipase 35 Units/L (8-78); Magnesium 2.5 mg/dL (1.6-2.6); Osmolality,Calculated 303 (280-300); Potassium 3.5 mEq/L (3.5-4.5); Total Protein 6.2 g/dL (6.0-8.3); eGFR For African Americans > 60 (> 60); eGFR For Non-African Americans > 60 (> 60)
[2017-02-16 17:04] LABS: Sodium 146 mEq/L (136-145)
[2017-02-16 17:05] LABS: Phosphorous < 0.7 mg/dL (2.3-4.7)
[2017-02-16 17:07] LABS: Bilirubin,Urine Negative (Negative); Blood,Urine Negative (Negative); Clarity,Urine Clear (Clear); Color,Urine Yellow (Yellow); Glucose,Urine (UA) Normal (Normal); Ketones,Urine Negative (Negative); Leukocyte Esterase,Urine Negative (Negative); Nitrite,Urine Negative (Negative); Protein,Urine Negative (Neg-Trace); Urobilinogen,Urine Normal (Normal)
[2017-02-16 22:34] LABS: BUN/Creatinine Ratio 12 (6-26); Blood Urea Nitrogen 14 mg/dL (8-26); Calcium 9.6 mg/dL (8.6-10.8); Carbon Dioxide 23 mEq/L (19-29); Chloride 123 mEq/L (98-109); Glucose 127 mg/dL (70-99); Magnesium 2.5 mg/dL (1.6-2.6); Osmolality,Calculated 316 (280-300); Phosphorous 1.2 mg/dL (2.3-4.7); Sodium 152 mEq/L (136-145); eGFR For African Americans > 60 (> 60); eGFR For Non-African Americans > 60 (> 60)
[2017-02-17 01:57] LABS: Basophils % 0.2 %; Eosinophils % 0.2 %; Hematocrit 39.8 % (37.5-50.1); Hemoglobin 14.3 g/dL (12.9-16.9); Immature Granulocytes % 1.3 % (0-4); Lymphocytes # 0.8 K/mcL (0.6-4.6); Lymphocytes % 4.5 %; Mean Corpuscular HGB Conc 35.9 g/dL (31.6-35.5); Mean Corpuscular Hemoglobin 29.5 pg (28.0-33.3); Mean Corpuscular Volume 82.1 fL (83.0-100.0); Mean Platelet Volume 9.7 fL (9.4-12.4); Monocytes # 0.6 K/mcL (0.0-1.3); Neutrophils # 16.9 K/mcL (1.6-8.9); Platelet Count 212 K/mcL (140-400); Red Blood Count 4.85 M/mcL (4.19-5.50); Red Cell Distribution Width 12.6 % (11.5-14.5); Segmented Neutrophils % 90.8 %
[2017-02-17 02:10] LABS: INR 1.3; Ionized Calcium 1.29 mmol/L (1.15-1.35); Prothrombin Time 13.7 Seconds (9.4-12.1)
[2017-02-17 02:12] LABS: Activated Partial Thrombo Time 24.6 Seconds (26.0-36.0)
[2017-02-17 02:13] LABS: Albumin 2.8 g/dL (3.5-5.0); Albumin/Globulin Ratio 0.7 (1.1-2.2); BUN/Creatinine Ratio 13 (6-26); Bilirubin,Direct 0.6 mg/dL (0.0-0.5); Bilirubin,Indirect 0.5 mg/dL (0.0-1.2); Bilirubin,Total 1.1 mg/dL (0.2-1.2); Blood Urea Nitrogen 15 mg/dL (8-26); Calcium 9.6 mg/dL (8.6-10.8); Carbon Dioxide 24 mEq/L (19-29); Chloride 126 mEq/L (98-109); Glucose 116 mg/dL (70-99); Magnesium 2.6 mg/dL (1.6-2.6); Osmolality,Calculated 322 (280-300); Potassium 4.5 mEq/L (3.5-4.5); Sodium 155 mEq/L (136-145); Total Protein 6.8 g/dL (6.0-8.3); eGFR For African Americans > 60 (> 60); eGFR For Non-African Americans > 60 (> 60)
[2017-02-17 02:14] LABS: Amylase 200 Units/L (25-125); Creatine Kinase 441 Units/L (30-200); Lipase 135 Units/L (8-78)
[2017-02-17 02:18] LABS: Phosphorous 0.9 mg/dL (2.3-4.7)
[2017-02-17 06:29] LABS: Ionized Calcium 1.24 mmol/L (1.15-1.35)
[2017-02-17 06:34] LABS: BUN/Creatinine Ratio 11 (6-26); Blood Urea Nitrogen 13 mg/dL (8-26); Calcium 9.6 mg/dL (8.6-10.8); Carbon Dioxide 22 mEq/L (19-29); Chloride 123 mEq/L (98-109); Glucose 192 mg/dL (70-99); Magnesium 2.1 mg/dL (1.6-2.6); Osmolality,Calculated 323 (280-300); Phosphorous 1.7 mg/dL (2.3-4.7); Potassium 4.5 mEq/L (3.5-4.5); Sodium 154 mEq/L (136-145); eGFR For African Americans > 60 (> 60); eGFR For Non-African Americans > 60 (> 60)
[2017-02-17 08:43] LABS: Hemoglobin A1C 4.8 %
[2017-02-17 10:34] LABS: Ionized Calcium 1.22 mmol/L (1.15-1.35)
[2017-02-17 10:44] LABS: Alanine Aminotransferase 218 Units/L (0-55); Albumin 2.8 g/dL (3.5-5.0); Albumin/Globulin Ratio 0.7 (1.1-2.2); Alkaline Phosphatase 59 Units/L (38-126); Amylase 165 Units/L (25-125); Aspartate Amino Transferase 44 Units/L (5-34); BUN/Creatinine Ratio 11 (6-26); Bilirubin,Direct 0.4 mg/dL (0.0-0.5); Bilirubin,Indirect 0.3 mg/dL (0.0-1.2); Bilirubin,Total 0.7 mg/dL (0.2-1.2); Blood Urea Nitrogen 13 mg/dL (8-26); Calcium 9.3 mg/dL (8.6-10.8); Carbon Dioxide 22 mEq/L (19-29); Chloride 121 mEq/L (98-109); Creatine Kinase 826 Units/L (30-200); Globulin 3.8 g/dL (2.4-3.5); Glucose 214 mg/dL (70-99); LDL Cholesterol,Direct 38 mg/dL (< 100); Lactate Dehydrogenase 264 Units/L (159-327); Lipase 145 Units/L (8-78); Magnesium 2.1 mg/dL (1.6-2.6); Osmolality,Calculated 323 (280-300); Phosphorous 2.7 mg/dL (2.3-4.7); Potassium 4.1 mEq/L (3.5-4.5); Sodium 153 mEq/L (136-145); Total Protein 6.6 g/dL (6.0-8.3); eGFR For African Americans > 60 (> 60); eGFR For Non-African Americans > 60 (> 60)
[2017-02-17 10:52] LABS: Basophils % 0.1 %; Hematocrit 36.6 % (37.5-50.1); Immature Granulocytes % 1.3 % (0-4); Lymphocytes # 0.8 K/mcL (0.6-4.6); Lymphocytes % 5.1 %; Mean Corpuscular HGB Conc 35.5 g/dL (31.6-35.5); Mean Corpuscular Hemoglobin 29.4 pg (28.0-33.3); Mean Corpuscular Volume 82.8 fL (83.0-100.0); Monocytes # 0.3 K/mcL (0.0-1.3); Monocytes % 1.7 %; Neutrophils # 13.8 K/mcL (1.6-8.9); Platelet Count 180 K/mcL (140-400); Red Blood Count 4.42 M/mcL (4.19-5.50); Red Cell Distribution Width 12.9 % (11.5-14.5); Segmented Neutrophils % 91.8 %
[2017-02-17 10:56] LABS: Gamma Glutamyl Transpeptidase 33 Units/L (12-64)
[2017-02-17 10:58] LABS: INR 1.3; Prothrombin Time 13.9 Seconds (9.4-12.1)
[2017-02-17 11:06] LABS: Activated Partial Thrombo Time 20.2 Seconds (26.0-36.0)
[2017-02-17] MEDS ORDERED: EPINEPHrine 1 MG in D5% in Water 250 ML IVC SCH (13:45)
[2017-02-17] MEDS ORDERED: Esmolol 2.5 GM/250 ML MLS IVC SCH (13:45)
[2017-02-17] MEDS ORDERED: niCARdipine 40 MG/200 ML MLS IVC SCH (14:00)
[2017-02-17] MEDS ORDERED: Vasopressin 40 UNIT in D5% in Water 100 ML IV SCH (14:00)
[2017-02-17 14:24] LABS: BUN/Creatinine Ratio 11 (6-26); Blood Urea Nitrogen 12 mg/dL (8-26); Calcium 9.2 mg/dL (8.6-10.8); Carbon Dioxide 21 mEq/L (19-29); Chloride 121 mEq/L (98-109); Glucose 218 mg/dL (70-99); Osmolality,Calculated 320 (280-300); Phosphorous 1.9 mg/dL (2.3-4.7); Potassium 3.6 mEq/L (3.5-4.5); Sodium 152 mEq/L (136-145); eGFR For African Americans > 60 (> 60); eGFR For Non-African Americans > 60 (> 60)
[2017-02-17] MEDS ORDERED: Ringers Solution, Lactated 1,000 ML IVC SCH ×3 (14:30→19:15)
[2017-02-17] MEDS ORDERED: LEVOTHYROXINE SODIUM IV SCH (14:45)
[2017-02-17] MEDS ORDERED: SODIUM CHLORIDE 0.9% IV SCH (14:45)
[2017-02-17] MEDS ORDERED: Furosemide 20 MG/2 ML VIAL IVP ONE (16:39)
[2017-02-17] MEDS ORDERED: SODIUM CHLORIDE 0.9% IVPB ONE (17:27)
[2017-02-17] MEDS ORDERED: POTASSIUM PHOSPHATE IVPB ONE (17:27)
[2017-02-17 18:13] LABS: Basophils % 0.1 %; Hematocrit 33.2 % (37.5-50.1); Hemoglobin 11.7 g/dL (12.9-16.9); Immature Platelets 3.4 % (1.1-6.1); Lymphocytes # 0.7 K/mcL (0.6-4.6); Lymphocytes % 4.1 %; Mean Corpuscular HGB Conc 35.2 g/dL (31.6-35.5); Mean Corpuscular Hemoglobin 29.6 pg (28.0-33.3); Mean Corpuscular Volume 84.1 fL (83.0-100.0); Mean Platelet Volume 9.7 fL (9.4-12.4); Monocytes # 0.4 K/mcL (0.0-1.3); Monocytes % 2.5 %; Platelet Count 188 K/mcL (140-400); Red Blood Count 3.95 M/mcL (4.19-5.50); Segmented Neutrophils % 91.3 %
[2017-02-17 18:16] LABS: Bilirubin,Urine Negative (Negative); Blood,Urine Negative (Negative); Clarity,Urine Clear (Clear); Color,Urine Yellow (Yellow); Glucose,Urine (UA) Normal (Normal); Ketones,Urine Negative (Negative); Leukocyte Esterase,Urine Negative (Negative); Nitrite,Urine Negative (Negative); PH,Urine 6.5 pH Units (5.0-8.0); Protein,Urine Trace mg/dL (Neg-Trace); Specific Gravity,Urine > 1.030 (1.010-1.025); Urobilinogen,Urine Normal (Normal)
[2017-02-17 18:18] LABS: Bacteria,Urine None Seen per hpf (None-Few); Hyaline Casts,Urine None Seen per lpf (None-Few); RBC,Urine 0-3 per hpf (0-3); Squamous Epithelial Cell,Urine Many per lpf (None-Few); WBC,Urine 0-3 per hpf (0-3)
[2017-02-17 18:20] LABS: ABG Base Excess 0 mEq/L (-2 to 3); ABG HCO3 24 mEq/L (21-27); ABG Oxygen Saturation 100 % (95-98); ABG PCO2 36 mmHg (35-45); ABG PH 7.44 pH Units (7.32-7.45); ABG PO2 189 mmHg (85-104); ABG TCO2 25 mEq/L (20-26)
[2017-02-17 18:21] LABS: INR 1.2; Prothrombin Time 13.5 Seconds (9.4-12.1)
[2017-02-17 18:23] LABS: Activated Partial Thrombo Time 23.9 Seconds (26.0-36.0)
[2017-02-17 18:28] LABS: Ionized Calcium 1.07 mmol/L (1.15-1.35)
[2017-02-17 18:34] LABS: Alanine Aminotransferase 170 Units/L (0-55); Albumin 2.8 g/dL (3.5-5.0); Albumin/Globulin Ratio 0.8 (1.1-2.2); Alkaline Phosphatase 50 Units/L (38-126); Amylase 127 Units/L (25-125); Aspartate Amino Transferase 34 Units/L (5-34); BUN/Creatinine Ratio 11 (6-26); Bilirubin,Direct 0.4 mg/dL (0.0-0.5); Bilirubin,Indirect 0.3 mg/dL (0.0-1.2); Bilirubin,Total 0.7 mg/dL (0.2-1.2); Blood Urea Nitrogen 12 mg/dL (8-26); Carbon Dioxide 22 mEq/L (19-29); Chloride 121 mEq/L (98-109); Creatine Kinase 748 Units/L (30-200); Globulin 3.4 g/dL (2.4-3.5); Glucose 206 mg/dL (70-99); LDL Cholesterol,Direct 41 mg/dL (< 100); Lactate Dehydrogenase 243 Units/L (159-327); Lipase 165 Units/L (8-78); Osmolality,Calculated 324 (280-300); Phosphorous 3.4 mg/dL (2.3-4.7); Potassium 3.7 mEq/L (3.5-4.5); Sodium 154 mEq/L (136-145); Total Protein 6.2 g/dL (6.0-8.3); eGFR For African Americans > 60 (> 60); eGFR For Non-African Americans > 60 (> 60)
[2017-02-17 18:46] LABS: Gamma Glutamyl Transpeptidase 29 Units/L (12-64)
[2017-02-17] MEDS: Piperacillin/Tazobactam 3.375 GM in D5% in Water (Mini-Bag+) 100 ML IVPB SCH (20:31)
[2017-02-17 22:14] LABS: ABG Base Excess 0 mEq/L (-2 to 3); ABG HCO3 25 mEq/L (21-27); ABG Oxygen Saturation 99 % (95-98); ABG PCO2 38 mmHg (35-45); ABG PH 7.42 pH Units (7.32-7.45); ABG PO2 117 mmHg (85-104); ABG TCO2 26 mEq/L (20-26); Blood Gas Modality ASSIST CONTROL; Blood Gas PEEP 5 cm H2O; Blood Gas Respiration Rate 16; Blood Gas VT 550 cc
[2017-02-17 22:35] LABS: Ionized Calcium 1.13 mmol/L (1.15-1.35)
[2017-02-17 22:40] LABS: Alanine Aminotransferase 153 Units/L (0-55); Albumin 2.7 g/dL (3.5-5.0); Albumin/Globulin Ratio 0.8 (1.1-2.2); Alkaline Phosphatase 45 Units/L (38-126); Amylase 119 Units/L (25-125); Aspartate Amino Transferase 31 Units/L (5-34); BUN/Creatinine Ratio 10 (6-26); Bilirubin,Direct 0.3 mg/dL (0.0-0.5); Bilirubin,Indirect 0.2 mg/dL (0.0-1.2); Bilirubin,Total 0.5 mg/dL (0.2-1.2); Blood Urea Nitrogen 10 mg/dL (8-26); Calcium 8.7 mg/dL (8.6-10.8); Carbon Dioxide 22 mEq/L (19-29); Chloride 119 mEq/L (98-109); Cholesterol 93 mg/dL (< 200); Gamma Glutamyl Transpeptidase 31 Units/L (12-64); Globulin 3.4 g/dL (2.4-3.5); Glucose 219 mg/dL (70-99); Lactate Dehydrogenase 216 Units/L (159-327); Lipase 177 Units/L (8-78); Magnesium 1.9 mg/dL (1.6-2.6); Osmolality,Calculated 320 (280-300); Potassium 3.8 mEq/L (3.5-4.5); Sodium 152 mEq/L (136-145); Total Protein 6.1 g/dL (6.0-8.3); eGFR For African Americans > 60 (> 60); eGFR For Non-African Americans > 60 (> 60)
[2017-02-17] MEDS ORDERED: Calcium Chloride 1,000 MG in 0.9 % Sodium Chloride 100 ML IVPB ONE (22:57)
[2017-02-17] MEDS ORDERED: Albumin 25% 12.5gm/50mL 12.5 GM/50 ML IV.SOLN IVPB ONE (22:58)
[2017-02-17 23:45] LABS: ABG Base Excess 0 mEq/L (-2 to 3); ABG HCO3 24 mEq/L (21-27); ABG Oxygen Saturation 100 % (95-98); ABG PCO2 34 mmHg (35-45); ABG PH 7.45 pH Units (7.32-7.45); ABG PO2 357 mmHg (85-104); ABG TCO2 25 mEq/L (20-26); Blood Gas Modality ASSIST CONTROL; Blood Gas PEEP 8 cm H2O; Blood Gas Respiration Rate 16; Blood Gas VT 550 cc
[2017-02-18] MEDS ORDERED: Furosemide 20 MG/2 ML VIAL IVP ONE ×2 (00:27→05:32)
[2017-02-18] MEDS ORDERED: 0.45 % Sodium Chloride w/KCl 20 MEQ/1,000 ML MLS IVC SCH (01:00)
[2017-02-18 02:21] LABS: Basophils % 0.1 %; Hematocrit 31.6 % (37.5-50.1); Hemoglobin 11.1 g/dL (12.9-16.9); Immature Granulocytes % 0.9 % (0-4); Immature Platelets 3.6 % (1.1-6.1); Lymphocytes # 0.7 K/mcL (0.6-4.6); Lymphocytes % 4.2 %; Mean Corpuscular HGB Conc 35.1 g/dL (31.6-35.5); Mean Corpuscular Hemoglobin 29.8 pg (28.0-33.3); Mean Corpuscular Volume 84.7 fL (83.0-100.0); Mean Platelet Volume 10.3 fL (9.4-12.4); Monocytes # 0.5 K/mcL (0.0-1.3); Monocytes % 2.9 %; Neutrophils # 15.7 K/mcL (1.6-8.9); Platelet Count 194 K/mcL (140-400); Red Blood Count 3.73 M/mcL (4.19-5.50); Red Cell Distribution Width 13.1 % (11.5-14.5); Segmented Neutrophils % 91.9 %
[2017-02-18 02:23] LABS: ABG Base Excess 1 mEq/L (-2 to 3); ABG HCO3 25 mEq/L (21-27); ABG Oxygen Saturation 99 % (95-98); ABG PCO2 36 mmHg (35-45); ABG PH 7.44 pH Units (7.32-7.45); ABG PO2 153 mmHg (85-104); ABG TCO2 26 mEq/L (20-26); Blood Gas Modality ASSIST CONTROL; Blood Gas PEEP 8 cm H2O; Blood Gas Respiration Rate 16; Blood Gas VT 550 cc
[2017-02-18 02:26] LABS: Ionized Calcium 1.28 mmol/L (1.15-1.35)
[2017-02-18 02:36] LABS: Phosphorous 4.9 mg/dL (2.3-4.7)
[2017-02-18 02:38] LABS: Alanine Aminotransferase 142 Units/L (0-55); Albumin 2.9 g/dL (3.5-5.0); Albumin/Globulin Ratio 0.9 (1.1-2.2); Alkaline Phosphatase 48 Units/L (38-126); Amylase 106 Units/L (25-125); Aspartate Amino Transferase 29 Units/L (5-34); BUN/Creatinine Ratio 9 (6-26); Bilirubin,Direct 0.3 mg/dL (0.0-0.5); Bilirubin,Indirect 0.2 mg/dL (0.0-1.2); Bilirubin,Total 0.5 mg/dL (0.2-1.2); Blood Urea Nitrogen 10 mg/dL (8-26); Calcium 9.5 mg/dL (8.6-10.8); Carbon Dioxide 24 mEq/L (19-29); Chloride 123 mEq/L (98-109); Cholesterol 101 mg/dL (< 200); Creatine Kinase 710 Units/L (30-200); Globulin 3.4 g/dL (2.4-3.5); Glucose 221 mg/dL (70-99); Lactate Dehydrogenase 218 Units/L (159-327); Osmolality,Calculated 328 (280-300); Sodium 156 mEq/L (136-145); Total Protein 6.3 g/dL (6.0-8.3); eGFR For African Americans > 60 (> 60); eGFR For Non-African Americans > 60 (> 60)
[2017-02-18 02:56] LABS: Gamma Glutamyl Transpeptidase 32 Units/L (12-64)
[2017-02-18 03:28] LABS: INR 1.3; Prothrombin Time 13.6 Seconds (9.4-12.1)
[2017-02-18] MEDS: Piperacillin/Tazobactam 3.375 GM in D5% in Water (Mini-Bag+) 100 ML IVPB SCH (04:49)
[2017-02-18 05:24] LABS: ABG Base Excess 2 mEq/L (-2 to 3); ABG HCO3 27 mEq/L (21-27); ABG Oxygen Saturation 100 % (95-98); ABG PCO2 42 mmHg (35-45); ABG PH 7.42 pH Units (7.32-7.45); ABG PO2 439 mmHg (85-104); ABG TCO2 28 mEq/L (20-26); Blood Gas Modality ASSIST CONTROL; Blood Gas PEEP 8 cm H2O; Blood Gas Respiration Rate 16; Blood Gas VT 550 cc
[2017-02-18 05:29] LABS: Ionized Calcium 1.24 mmol/L (1.15-1.35)
[2017-02-18] MEDS ORDERED: Ringers Solution, Lactated 500 ML IVC ONE (05:31)
[2017-02-18 05:34] LABS: BUN/Creatinine Ratio 10 (6-26); Blood Urea Nitrogen 11 mg/dL (8-26); Calcium 9.4 mg/dL (8.6-10.8); Carbon Dioxide 24 mEq/L (19-29); Chloride 124 mEq/L (98-109); Glucose 201 mg/dL (70-99); Osmolality,Calculated 327 (280-300); Phosphorous 4.3 mg/dL (2.3-4.7); Potassium 4.3 mEq/L (3.5-4.5); Sodium 156 mEq/L (136-145); eGFR For African Americans > 60 (> 60); eGFR For Non-African Americans > 60 (> 60)
[2017-02-18 06:06] VITALS: BP 113/66
[2017-02-18] MEDS ORDERED: Ringers Solution, Lactated 1,000 ML ONE (06:09)
[2017-02-18] MEDS ORDERED: *HR* Rocuronium Bromide 50 MG/5 ML VIAL ONE (06:53)
[2017-02-18] MEDS ORDERED: *HR* FentaNYL (PF) 250 MCG/5 ML VIAL ONE ×3 (07:15→08:17)
[2017-02-18] MEDS ORDERED: *HR* Phenylephrine 10 MG/ML VIAL ONE (07:16)
[2017-02-18] MEDS ORDERED: *HR* Midazolam HCl 5 MG/5 ML VIAL IVP ONE (07:30)
--- NOTE | 2017-02-18 09:28 | Anesthesia Evaluation PreOp ---
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 History: Other (Brain - 02/16 at 1200) Alcohol Use: unknown Drug use: unknown Medications and Allergies No Known Home Drugs 02/14/17 [History] 3 Allergy/AdvReac Type Severity Reaction Status Date / Time No Known Allergies Allergy Verified 02/14/17 14:04 Anesthesia Results - Labs 02/18/17 02:12 02/18/17 05:08 Anesthesia Exam Vital Signs/O2 Sat, Most Current Temp Pulse Resp BP Pulse Ox 99.0 F 101 16 113/66 100 02/18/17 06:00 02/18/17 06:00 02/18/17 06:00 02/18/17 06:00 02/18/17 06:00 - HEENT Mallampati: Intubated - REPAIR SPECIALIST LOC: Unable to assess - Cardiac Rhythm: Regular - Pulmonary Breath Sounds: bilateral Clear Anesthesia Assess/Plan ASA Score: 6 Modified [place] Scale for Level of Consciousness: Asleep with no response Anesthetic Plan: General Monitoring Plan: Standard Monitors, A-Line, CVC Anes Supervising Prov Stmt: I have participated in the evaluation of this patient.
[2017-02-18 12:51] LABS: Hepatitis A Antibody IgM Nonreactive (Nonreactive); Hepatitis B Core IgM Nonreactive (Nonreactive); Hepatitis C Virus Antibody Nonreactive (Nonreactive)
--- NOTE | 2017-02-18 16:52 | Electrocardiograph Report ---
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
[2017-02-19] MEDS ORDERED: Piperacillin/Tazobactam 3.375 GM in D5% in Water (Mini-Bag+) 100 ML IVPB SCH (12:15)
== END 2017-02-18 11:00 | disposition expired | DRG 951 ==
LOC: ICNU 12:22
PROVIDERS: ADMIT Internal Medicine Pulmonary Disease; ATTEND Internal Medicine Pulmonary Disease
PROC: ENDOBRF (2017-02-17 09:00)